=== PATIENT | male | born 1990 | race Caucasian/White ===

== ENCOUNTER 2021-01-01 13:15 | Observation (INO) | payer OTHER ==
[~2021-01-01] VITALS: Ht 177.8 cm; Wt 90.0 kg
[2021-01-01 15:04] LABS: BASO % 0.4 % (0.0-2.0); EOS # 0.1 (0.0-0.7); EOS % 1.2 % (0-4.0); GRAN # 8.2 (1.4-6.5); HEMOGLOBIN 16.3 g/dl (13.5-18.0); LYMPH # 1.8 (1.2-3.4); LYMPH % 15.7 % (20.0-51.0); MEAN CELL VOLUME 88 fl (80.0-100.0); MEAN CORPUSCULAR HEMOGLOBIN 30 pg (27.0-31.0); MEAN CORPUSCULAR HGB CONC 34 g/dl (33.0-37.0); MEAN PLATELET VOLUME 9.6 fl (7.4-10.4); MONO # 0.9 (0.1-0.6); MONO % 8.5 % (1.7-9.3); PLATELET COUNT 213 K/mm3 (130-400); RED BLOOD COUNT 5.45 M/mm3 (4.20-5.60); REDCELL DISTRIBUTION WIDTH-CV 12.4 % (11.5-14.5)
[2021-01-01 15:13] LABS: PHOSPHOROUS 4.9 mg/dL (2.5-4.5); URIC ACID 3.5 mg/dL (3.5-8.5)
[2021-01-01 15:14] LABS: ALBUMIN 4.6 gm/dL (3.5-5.0); BILIRUBIN,TOTAL 0.5 mg/dL (0.0-1.0); CALCIUM 9.7 mg/dL (8.4-10.2); CREATININE, serum 1.1 (0.66-1.25); POTASSIUM 4.3 mmol/L (3.4-5.0); TOTAL PROTEIN 7.8 gm/dL (6.4-8.2)
--- NOTE | 2021-01-01 16:00 | NUR ---
Admission assessment completed, alert/oriented, vital signs stable, repotrt BUE tightness/soreness and faituge, he has very limited ROM in his UE as well, no signs of impaired circulation/ good cap refill, IV started to left wrist, heart RRR, lungs CTA no resp.difficulty noted, IVF infusing , home meds/allergies/pharmacy reviewed, denies other needs
[2021-01-01 17:21] VITALS: BP 139/73; PULSE 63; TEMP 97.6
[2021-01-01 19:13] LABS: CREATININE, serum 0.23 (0.66-1.25); PHOSPHOROUS 1.5 mg/dL (2.5-4.5)
[2021-01-01 19:25] LABS: POTASSIUM 1.3 mmol/L (3.4-5.0)
[2021-01-01 19:26] LABS: CALCIUM 2.6 mg/dL (8.4-10.2)
[2021-01-01 19:35] LABS: COLLECTION METHOD CLEAN CATCH
--- NOTE | 2021-01-01 19:45 | NUR ---
POTASSIUM LEVEL OF 1.3 CO2 OF 10 AMD CALCIUM OF 2.6 REPORTED TO JIM CONNELL. WILL PLACE ORDERS.
[2021-01-01 19:48] LABS: PH 6 (5-8); SQUAMOUS EPITHELIAL None Seen /hpf; URINE APPEARANCE Clear; URINE BACTERIA None Seen /hpf; URINE BILIRUBIN Negative (NEGATIVE); URINE BLOOD 3+ (NEGATIVE); URINE COLOR Straw; URINE GLUCOSE Negative (NEGATIVE); URINE KETONE Negative (NEGATIVE); URINE LEUKOCYTE ESTERASE Negative (NEGATIVE); URINE NITRATE Negative (NEGATIVE); URINE PROTEIN(semi-quant) Negative (NEGATIVE); URINE RBC 0-2 /hpf; URINE UROBILINOGEN Negative (NEGATIVE)
[2021-01-01 20:35] LABS: CALCIUM 9.1 mg/dL (8.4-10.2); CREATININE, serum 1.01 (0.66-1.25)
[2021-01-01 20:43] LABS: POTASSIUM 4.1 mmol/L (3.4-5.0)
--- NOTE | 2021-01-01 21:09 | NUR ---
REPEATED LABS, POSSIBLE DILUTION. REPEAT LAB AND EKG DONE. LAB VALUES MUCH BETTER TAKEN OUT OF ARM NOT RUNNING FLUIDS. BECKI REQ ME TO CALL HER [address] LABS.
[2021-01-01 21:11] LABS: MAGNESIUM 2.1 mg/dL (1.6-2.3)
--- NOTE | 2021-01-01 22:02 | NUR ---
ALERT AND OX4. C/O ARMS BEING VERY SORE, ABLE TO EXTEND ARMS UP TO CERTAIN POINT THEN HURTS. DENIES SOA, CHEST PAIN OR DIZZY. VOIDING LARGE AMOUNTS OF URINE. 400ML/HR NS TO RIGHT HAND INFUSING. WILL DRAW LABS PER ORDER OFTEN TO MONITOR. POC DISCUSSED. NEEDS MET.
[2021-01-01 23:22] LABS: ALBUMIN 3.8 gm/dL (3.5-5.0); CALCIUM 8.9 mg/dL (8.4-10.2); CREATININE, serum 0.86 (0.66-1.25); POTASSIUM 4.1 mmol/L (3.4-5.0)
[2021-01-01 23:32] LABS: PHOSPHOROUS 4.7 mg/dL (2.5-4.5)
[2021-01-02 03:16] LABS: ALBUMIN 3.4 gm/dL (3.5-5.0); CALCIUM 8.5 mg/dL (8.4-10.2); CREATININE, serum 0.82 (0.66-1.25); PHOSPHOROUS 4.4 mg/dL (2.5-4.5); POTASSIUM 4.4 mmol/L (3.4-5.0)
--- NOTE | 2021-01-02 05:40 | NUR ---
reports spasm/slight cramp when voiding, states goes right away. rates maybe a 2/10. Reported to lam rose. Sounds like possible bladder spasm from fluids/constant voids. Will pass along to dr rudd this am when rounds.
[2021-01-02 07:35] LABS: BASO % 0.4 % (0.0-2.0); EOS # 0.2 (0.0-0.7); EOS % 2.4 % (0-4.0); GRAN # 4.8 (1.4-6.5); GRAN % 66.3 % (42.2-75.2); HEMATOCRIT 44.1 % (42.0-52.0); HEMOGLOBIN 14.5 g/dl (13.5-18.0); LYMPH # 1.5 (1.2-3.4); LYMPH % 20.6 % (20.0-51.0); MEAN CELL VOLUME 89 fl (80.0-100.0); MEAN CORPUSCULAR HEMOGLOBIN 29 pg (27.0-31.0); MEAN CORPUSCULAR HGB CONC 33 g/dl (33.0-37.0); MEAN PLATELET VOLUME 10.1 fl (7.4-10.4); MONO # 0.7 (0.1-0.6); MONO % 10.2 % (1.7-9.3); PLATELET COUNT 165 K/mm3 (130-400); RED BLOOD COUNT 4.96 M/mm3 (4.20-5.60); REDCELL DISTRIBUTION WIDTH-CV 12.5 % (11.5-14.5)
[2021-01-02 08:20] LABS: ALBUMIN 3.6 gm/dL (3.5-5.0); BILIRUBIN,TOTAL 0.7 mg/dL (0.0-1.0); CREATININE, serum 0.73 (0.66-1.25); TOTAL PROTEIN 6.4 gm/dL (6.4-8.2)
[2021-01-02 09:18] VITALS: BP 136/82; PULSE 70; TEMP 98
--- NOTE | 2021-01-02 10:34 | NUR ---
Patient resting in room, his at bedside. Ivf decreased. He denies pain. He has been ambulating the halls. continues to void without troubles. Morgan espino.
--- NOTE | 2021-01-02 11:28 | NUR ---
DANII met with the patient and his , Jillian (ph#[phone]), to discuss discharge plan. The patient lives in [place] with his and their three children. He reports independence with ADLs and does not have any DME. The patient's PCP is Dr. Gustavo Pablo and he receives his medications from [facility]. He reports that he has not really ever been on any medications, so has not ever had difficulties affording meds. The patient does not have a DPOA-HC in EMR, but he believes that he does have one completed and that it designates his . The patient plans to return home with his family upon discharge. No additional needs at this time. *Discharge plan: home with family*
[2021-01-02 13:31] VITALS: BP 137/73; PULSE 67
--- NOTE | 2021-01-02 15:50 | NUR ---
Patient continues to walk halls independently. Ivf per orders. He showered this afternoon. Continues to tolerate food. Denies pain. He has been on the phine throughout the day trying to get his work done. Elie needs. Will monitor.
--- NOTE | 2021-01-02 16:15 | NUR ---
First visit from the room server. No needs right now.
[2021-01-02 16:46] VITALS: BP 130/80; PULSE 103; TEMP 97.4
[2021-01-02 17:57] LABS: ALBUMIN 3.9 gm/dL (3.5-5.0); CALCIUM 9.3 mg/dL (8.4-10.2); CREATININE, serum 0.76 (0.66-1.25)
--- NOTE | 2021-01-02 18:04 | NUR ---
Patient continues to ambulate halls. Dinner ordered. Labs redrawn. Minimal needs.
[2021-01-02 18:46] LABS: PHOSPHOROUS 4.7 mg/dL (2.5-4.5)
[2021-01-02 19:22] VITALS: BP 141/78; PULSE 62; TEMP 98.4
[2021-01-02 23:39] VITALS: BP 167/66; PULSE 59; TEMP 98.6
[2021-01-03 04:00] VITALS: BP 134/63; PULSE 67; TEMP 97.7
[2021-01-03 06:24] LABS: BASO % 0.6 % (0.0-2.0); EOS # 0.3 (0.0-0.7); EOS % 3.8 % (0-4.0); GRAN # 4.5 (1.4-6.5); GRAN % 64.8 % (42.2-75.2); HEMOGLOBIN 13.9 g/dl (13.5-18.0); LYMPH # 1.4 (1.2-3.4); LYMPH % 20.2 % (20.0-51.0); MEAN CELL VOLUME 90 fl (80.0-100.0); MEAN CORPUSCULAR HEMOGLOBIN 30 pg (27.0-31.0); MEAN CORPUSCULAR HGB CONC 33 g/dl (33.0-37.0); MEAN PLATELET VOLUME 9.9 fl (7.4-10.4); MONO # 0.7 (0.1-0.6); MONO % 10.5 % (1.7-9.3); PLATELET COUNT 174 K/mm3 (130-400); RED BLOOD COUNT 4.68 M/mm3 (4.20-5.60); REDCELL DISTRIBUTION WIDTH-CV 12.5 % (11.5-14.5)
[2021-01-03 06:36] LABS: ALBUMIN 3.6 gm/dL (3.5-5.0); BILIRUBIN,TOTAL 0.7 mg/dL (0.0-1.0); CALCIUM 9.3 mg/dL (8.4-10.2); CREATININE, serum 0.84 (0.66-1.25); POTASSIUM 4.3 mmol/L (3.4-5.0); TOTAL PROTEIN 6.4 gm/dL (6.4-8.2)
[2021-01-03 12:00] VITALS: BP 121/65; PULSE 68; TEMP 97.7
[2021-01-03 12:56] LABS: MONOSCREEN NEGATIVE
[2021-01-03 13:35] LABS: INR 1.3 (0.8-3.0); PROTHROMBIN TIME 13.9 SECONDS (9.7-12.8)
[2021-01-03 16:00] VITALS: BP 149/77; PULSE 62; TEMP 97.9
--- NOTE | 2021-01-03 17:01 | NUR ---
PT INFUSING AT 200ML/HR. PT STATES TO NURSE THAT DR. CARTY RECOMMENDED TO DROP N/S INFUSING TO 200ML/HR FROM 400ML/HR, PT WAS URINATING EXCESSIVELY AND REPORTED ABDOMINAL PAIN. N/S INFUSING AT 200ML/HR. CALL LIGHT WITHIN REACH.
[2021-01-03 20:11] VITALS: BP 136/65; PULSE 60; TEMP 98.5
--- NOTE | 2021-01-03 21:48 | NUR ---
Pt is doing much better. CK went down. IV fluid is still running at 200ml/hr. Will continue to monitor.
[2021-01-03 23:56] VITALS: BP 117/60; PULSE 58; TEMP 98.3
[2021-01-04 04:02] VITALS: BP 132/56; PULSE 50; TEMP 98.2
[2021-01-04 06:52] LABS: BASO % 0.5 % (0.0-2.0); EOS # 0.2 (0.0-0.7); EOS % 3.6 % (0-4.0); GRAN # 4.5 (1.4-6.5); GRAN % 67.3 % (42.2-75.2); HEMATOCRIT 42.3 % (42.0-52.0); HEMOGLOBIN 14.2 g/dl (13.5-18.0); LYMPH # 1.3 (1.2-3.4); LYMPH % 19.5 % (20.0-51.0); MEAN CELL VOLUME 89 fl (80.0-100.0); MEAN CORPUSCULAR HEMOGLOBIN 30 pg (27.0-31.0); MEAN CORPUSCULAR HGB CONC 34 g/dl (33.0-37.0); MEAN PLATELET VOLUME 9.9 fl (7.4-10.4); MONO # 0.6 (0.1-0.6); MONO % 8.8 % (1.7-9.3); PLATELET COUNT 190 K/mm3 (130-400); RED BLOOD COUNT 4.74 M/mm3 (4.20-5.60); REDCELL DISTRIBUTION WIDTH-CV 12.4 % (11.5-14.5)
--- NOTE | 2021-01-04 07:00 | NUR ---
Report with FELIZ aNvarro. Pt up to bathroom at this time, denies needs. Call light in reach.
[2021-01-04 07:13] LABS: ALBUMIN 3.7 gm/dL (3.5-5.0); BILIRUBIN,TOTAL 0.7 mg/dL (0.0-1.0); CALCIUM 9.3 mg/dL (8.4-10.2); CREATININE, serum 0.81 (0.66-1.25); POTASSIUM 3.8 mmol/L (3.4-5.0); TOTAL PROTEIN 6.6 gm/dL (6.4-8.2)
[2021-01-04 07:22] VITALS: BP 132/71; PULSE 57; TEMP 97.9
--- NOTE | 2021-01-04 13:40 | NUR ---
Discharge instructions reviewed with pt regarding follow-up appointment and labs. Pt verbalizes understanding, discharged home, ambulates out of facility accompanied by this nurse and pt's .
== END 2021-01-04 13:57 | disposition home or self-care (01) ==
LOC: MEDICAL 13:15
PROVIDERS: Nurse Practitioner Family; Physician Assistant; ADMIT Emergency Medicine
DX: M62.82 Rhabdomyolysis (principal); R94.5 Abnormal results of liver function studies; R82.1 Myoglobinuria; R74.8 Abnormal levels of other serum enzymes; R74.01 Elevation of levels of liver transaminase levels
CPT/HCPCS: 99232-AI; 99238; G0378; J7030